=== PATIENT | female | born 1990 | race Caucasian/White ===

== ENCOUNTER 2017-01-05 15:22 | Emergency (ER) | payer MEDICAID, SELFPAY ==
[2017-01-05] MEDS ORDERED: cefTRIAXone\\ROCEPHIN 250 MG VIAL ONE (16:38)
[2017-01-05] MEDS ORDERED: Azithromycin 250 MG TAB ONE (16:38)
[2017-01-05] MEDS ORDERED: Lidocaine 1% (PF) 30 ML VIAL ONE (16:39)
== END 2017-01-05 17:22 | disposition home or self-care (01) ==
LOC: ERS 15:22
DX: O98.311 Other infections with a predominantly sexual mode of transmission complicating pregnancy, first trimester (principal); Z3A.01 Less than 8 weeks gestation of pregnancy
CPT/HCPCS: 96372; J0696; J2001